=== PATIENT | female | born 1990 | race Caucasian/White ===

== ENCOUNTER 2017-11-22 03:18 | Emergency (ER) | payer OTHER ==
[~2017-11-22] VITALS: Ht 170.2 cm; Wt 63.5 kg
[2017-11-22] MEDS ORDERED: IV NORMAL SALINE 1,000ML 1,000 ML IV SCH (03:30)
[2017-11-22] MEDS ORDERED: IV NORMAL SALINE 1,000ML 1,000 ML IV ONE (03:30)
[2017-11-22 03:43] LABS: BARBITURATES NEG (NEG); BENZODIAZEPINES NEG (NEG); CANNABINOIDS NEG (NEG); COCAINE NEG (NEG); METHADONE NEG (NEG); OPIATES NEG (NEG); PHENCYCLIDINE NEG (NEG)
[2017-11-22 03:44] LABS: AMPHETAMINE/METHAMPHETAMINE NEG (NEG)
--- NOTE | 2017-11-22 03:45 | PHYS DOC ---
Adult General Chief Complaint Chief Complaint: ALCOHOL INTOXICATION HPI HPI 26-year-old female with a history of alcohol abuse now brought in by EMS for evaluation of intoxication. Per EMS someone was concerned the patient was having seizure-like activity, but EMS states they arrived during activity and the patient was not unconscious nor did she have any objective evidence of having had a generalized tonic-clonic seizure. There was no postictal state the patient had no incontinence. Patient admits to drinking and she is intoxicated. Denies trauma. Patient is vague about whether she uses any drugs. No history of overdose, SI, or self injury. Review of Systems Review of Systems Constitutional: Denies fever or chills [] Eyes: Denies change in visual acuity, redness, or eye pain [] HENT: Denies nasal congestion or sore throat [] Respiratory: Denies cough or shortness of breath [] Cardiovascular: No additional information not addressed in HPI [] GI: Denies abdominal pain, nausea, vomiting, bloody stools or diarrhea [] : Denies dysuria or hematuria [] Musculoskeletal: Denies back pain or joint pain [] Integument: Denies rash or skin lesions [] Neurologic: Denies headache, focal weakness or sensory changes [] Endocrine: Denies polyuria or polydipsia [] All other systems were reviewed and found to be within normal limits, except as documented in this note. Current Medications Current Medications Current Medications Medications (Trade) Dose Ordered Sig/Rohini Start Time Stop Time Status Last Admin Dose Admin Sodium Chloride 1,000 ml @ 1,000 mls/hr 1X ONCE 11/22/17 03:30 11/22/17 04:29 UNV Thiamine HCl 100 mg/Sodium Chloride 51 ml @ 102 mls/hr DAILY 11/22/17 09:00 UNV Physical Exam Physical Exam Constitutional: Well developed, well nourished, clinically intoxicated with alcohol on her breath but alert and communicative, cursing at staff HENT: Normocephalic, atraumatic, bilateral external ears normal, oropharynx moist, nose normal. [] Eyes: PERRLA, EOMI, conjunctiva normal, no discharge. [] Neck: Normal range of motion, supple, no stridor. [] Cardiovascular:Heart rate regular rhythm Lungs & Thorax: No tachypnea or increased work of breathing Abdomen: Abdomen nondistended Skin: Warm, dry, no erythema, no rash. [] Back: Unremarkable Extremities: Normal appearing, normal spontaneous range of motion, no cyanosis, no clubbing, ROM intact, no edema. [] Neurologic: Alert and oriented X 3, normal motor function, normal sensory function, no focal deficits noted. [] Psychologic: Tearful with anxious affect, clinically intoxicated but alert and communicative EKG EKG [] Radiology/Procedures Radiology/Procedures [] Course & Med Decision Making Course & Med Decision Making Pertinent Labs and Imaging studies reviewed. (See chart for details) Signs and symptoms consistent with alcohol intoxication. Patient admits to alcohol abuse this evening. Seizure-like activity witnessed by EMS not consistent with generalized tonic-clonic seizure. Patient with no evidence of alcohol withdrawal. Vital signs unremarkable with no tachycardia. She is nonfocal neurologically with a benign exam other than clinical intoxication. Patient is verbally abusive cursing at nursing staff. Hydration initiated and findings and will be administered. Workup pending. Shortly after patient arrival parents are present in the room at the bedside. After hydration and workup they're comfortable taking patient home and will be responsible for her safety until adequate resolution of her intoxication. Patient and parents agree with outpatient follow-up after treatment and strict return precautions will be given [] Dragon Disclaimer Dragon Disclaimer This electronic medical record was generated, in whole or in part, using a voice recognition dictation system. Departure Departure: Impression: Primary Impression: Alcohol intoxication Additional Impression: Alcohol abuse Disposition: 01 HOME, SELF-CARE Condition: IMPROVED Referrals: PERI BETH DO (PCP) Patient Instructions: Alcohol Intoxication, Alcohol Problems Additional Instructions: Nohemi is intoxicated from alcohol abuse this evening. She has been hydrated with normal saline intravenously. No further workup or treatment is indicated at this time. As her parents, you have expressed that you are willing to take responsibility for her safety while her intoxication completely resolves. Have her rest and drink plenty of nonalcoholic fluids and follow-up with her doctor tomorrow. Return immediately to the emergency department or bowel 911 for any new severe or worsening symptoms or concerns. Problem Qualifiers TRAMAINE MORRIS MD Nov 22, 2017 03:45
[2017-11-22] MEDS ORDERED: THIAMINE 200 MG/2 ML VIAL. IV ONE ×2 (03:54→04:17)
[2017-11-22] MEDS ORDERED: IV NORMAL SALINE 50ML 50 ML ONE (03:54)
[2017-11-22 04:01] LABS: BASO % 1 % (0-3); EOS # 0.2 x10^3/uL (0.0-0.7); EOS % 4 % (0-3); HEMATOCRIT 43.2 % (36.0-47.0); HEMOGLOBIN 14.8 g/dL (12.0-15.5); LYMPH # 2.5 x10^3/uL (1.0-4.8); LYMPH % 40 % (24-48); MEAN CORPUSCULAR HEMOGLOBIN 30 pg (25-35); MEAN CORPUSCULAR HGB CONC 34 g/dL (31-37); MEAN CORPUSCULAR VOLUME 89 fL (79-100); MONO # 0.5 x10^3/uL (0.0-1.1); MONO % 8 % (0-9); NEUT % 48 % (31-73); PLATELET COUNT 208 x10^3/uL (140-400); RED BLOOD COUNT 4.86 x10^6/uL (3.50-5.40); RED CELL DISTRIBUTION WIDTH 13.2 % (11.5-14.5); WHITE BLOOD COUNT 6.2 x10^3/uL (4.0-11.0)
[2017-11-22 04:08] LABS: CREATININE 0.8 mg/dL (0.6-1.0); POTASSIUM 3.3 mmol/L (3.5-5.1)
[2017-11-22 04:13] LABS: ACETAMIN < 2.0 mcg/mL (10-30); SALIC 3.5 mg/dL (2.8-20.0)
[2017-11-22] MEDS ORDERED: POTASSIUM CHLORIDE 20 MEQ TABLET.ER. PO ONE (04:45)
[2017-11-22 05:04] VITALS: BP 99/60
[2017-11-22] MEDS ORDERED: THIAMINE 100 MG in IV NORMAL SALINE 50ML 50 ML IV SCH (09:00)
== END 2017-11-22 05:11 | disposition home or self-care (01) ==
LOC: ER 03:18
DX: F10.129 Alcohol abuse with intoxication, unspecified (principal)
CPT/HCPCS: 36415; 80048; 80307; 85025; 96365; 99284; G0480; G0479; J7030

== ENCOUNTER → 2018-02-22 | Outpatient (CLI) | payer OTHER ==
--- NOTE | 2018-02-22 17:57 | RAD ---
OB ULTRASOUND, > 14 WEEKS Clinical Indication: Amenorrhea. Intermittent cramping. Comparison: None. Technique: Multiple grayscale images, color Doppler, and M-mode images of the uterus are obtained. Findings: There is a single intrauterine gestation in variable presentation. The placenta is posterior in location. The placenta is low-lying. Finding is not unusual given the gestational age. The amount of amniotic fluid appears appropriate. Cervical length is 4.8 cm. Cervix is closed. No funneling. Biometrical data: BPD = 7.6 cm for 13 weeks 5 days. HC = 2.2 cm for 13 weeks 4 days. AC = 8.5 cm for 13 weeks 5 days. FL = 6.7 cm for 13 weeks 3 days. HC/AC ratio = 1.27. Overall, the estimated sonographic gestational age is 13 weeks and 4 days for an estimated date of delivery of August 26, 2018. The estimated date of delivery provided by the last menstrual period is October 07, 2018. Estimated weight is out of range. The estimated heart rate is 157 beats per minute. A complete anatomic survey is not performed due to early gestational age. IMPRESSION: 1. Single live intrauterine gestation with estimated sonographic gestational age of 13 weeks and 4 days. 2. The placenta is low-lying. Suggest attention on follow-up ultrasound. Electronically signed by: Mumtaz Edwards MD (02/22/2018 5:53 PM) [id number]
== END | disposition home or self-care (01) ==
LOC: US 12:50
PROVIDERS: ATTEND Family Medicine
DX: Z34.81 Encounter for supervision of other normal pregnancy, first trimester (principal); Z3A.13 13 weeks gestation of pregnancy
CPT/HCPCS: 76801; 76817

== ENCOUNTER → 2018-04-13 | Outpatient (CLI) | payer OTHER ==
--- NOTE | 2018-04-13 13:24 | RAD ---
Examination: Limited Obstetric ultrasound greater than 14 weeks HISTORY: History of decreased movement, periumbilical pain COMPARISON: 02/22/2018 FINDINGS: Single living intrauterine identified with heart rate of 152 bpm. movement is identified. The amniotic fluid index measures 10 cm. The placenta is in the posterior wall and in the fundus. The biparietal diameter measures 4.5 cm corresponding to 19 weeks and 4 days. Head circumference measures 16.8 cm corresponding to 19 weeks and 3 days. Abdominal circumference measures 14.2 cm corresponding to 19 weeks and 4 days. Femur length measures 3.08 cm corresponding to 19 weeks and 4 days. Head circumference to abdominal circumference ratio 1.18. Estimated weight 300 g. Gestational age is 19 weeks and 4 days with estimated date of delivery by this ultrasound 09/03/2018 (on the prior exam the estimated date of delivery measured 08/26/2018). Given LMP is 11/19/2017. Clinical age is 20 weeks and 5 days. Cephalic index 78.2. Head circumference to abdominal circumference ratio 1.18. Femur length to biparietal diameter ratio 68.4. Femur length to head circumference 18.3. Femur length to abdominal circumference 21.6. IMPRESSION: Single living intrauterine with heart rate of 152 bpm. Findings as described above. Electronically signed by: James Ordaz MD (04/13/2018 1:21 PM) [id number]
== END | disposition home or self-care (01) ==
LOC: US 12:19
PROVIDERS: ATTEND Family Medicine
DX: O36.8120 Decreased fetal movements, second trimester, not applicable or unspecified (principal); Z3A.19 19 weeks gestation of pregnancy
CPT/HCPCS: 76805

== ENCOUNTER 2019-02-06 09:53 | Emergency (ER) | payer OTHER ==
[~2019-02-06] VITALS: Ht 160 cm; Wt 53.6 kg
[2019-02-06 10:05] VITALS: BP 129/81
--- NOTE | 2019-02-06 10:32 | PHYS DOC ---
Past History Past Medical History: Asthma Past Surgical History: Alcohol Use: Heavy Drug Use: None Adult General Chief Complaint Chief Complaint: PAIN ON URINATION HPI HPI Patient is a 28 year old female who presents with complaint of dysuria. States that her symptoms started 2 days ago in our gradually worsening. Notes that she is had increased urinary frequency. Currently on menstrual period. Denies any abnormal vaginal discharge. States that her pain is only present with urinating. Denies any abdominal pain, fever, or vomiting. Has not taken any medication for her symptoms. Review of Systems Review of Systems Constitutional: Denies fever or chills [] Eyes: Denies change in visual acuity, redness, or eye pain [] HENT: Denies nasal congestion or sore throat [] Respiratory: Denies cough or shortness of breath [] Cardiovascular: Denies chest pain or edema[] GI: Denies abdominal pain, nausea, vomiting, bloody stools or diarrhea [] : Dysuria, increased urinary frequency[] Musculoskeletal: Denies back pain or joint pain [] Integument: Denies rash or skin lesions [] Neurologic: Denies headache, focal weakness or sensory changes [] All other systems were reviewed and found to be within normal limits, except as documented in this note. Allergies Allergies Allergies Coded Allergies Type Severity Reaction Last Updated Verified Unable to Assess 11/22/17 No Physical Exam Physical Exam Constitutional: Well developed, well nourished, no acute distress, non-toxic appearance. [] HENT: Normocephalic, atraumatic, bilateral external ears normal, oropharynx moist, no oral exudates, nose normal. [] Eyes: PERRLA, EOMI, conjunctiva normal, no discharge. [] Neck: Normal range of motion, no tenderness, supple, no stridor. [] Cardiovascular:Heart rate regular rhythm, no murmur [] Lungs & Thorax: Bilateral breath sounds clear to auscultation [] Abdomen: Bowel sounds normal, soft, no tenderness, no masses, no pulsatile masses. [] Skin: Warm, dry, no erythema, no rash. [] Back: No tenderness, no CVA tenderness. [] Extremities: No tenderness, no cyanosis, no clubbing, ROM intact, no edema. [] Neurologic: Alert and oriented X 3, normal motor function, normal sensory function, no focal deficits noted. [] Current Patient Data Vital Signs Vital Signs Date Time Temp Pulse Resp B/P (MAP) Pulse Ox O2 Delivery O2 Flow Rate FiO2 02/06/19 10:05 98.2 83 20 97 Room Air Lab Results Laboratory Tests Test 02/06/19 10:50 02/06/19 11:00 Urine Collection Type Unknown Urine Color Maris Urine Clarity Cloudy Urine pH 6.0 Urine Specific [place] >=1.030 Urine Protein 30 mg/dl Urine Glucose (UA) Neg mg/dL Urine Ketones (Stick) 15 mg/dL Urine Blood Mod Urine Nitrite Neg Urine Bilirubin Neg Urine Urobilinogen Dipstick 0.2 mg/dL Urine Leukocyte Esterase Trace Urine RBC 3-5 /HPF Urine WBC >40 /HPF Urine Squamous Epithelial Cells Mod /LPF Urine Bacteria Mod /HPF Urine Mucus Marked /LPF Bedside Urine HCG, Qualitative hcg negative EKG EKG Not performed[] Radiology/Procedures Radiology/Procedures Not performed[] Course & Med Decision Making Course & Med Decision Making Pertinent Labs and Imaging studies reviewed. (See chart for details) Urinalysis highly suspicious for urinary tract infection. Patient started on Macrobid in the emergency department. We'll continue on seven-day course for outpatient treatment. Advised follow-up with primary doctor in the next 5-7 days if symptoms are not improving and return to emergency department for any worsening symptoms. Patient was understanding and in agreement with treatment plan.[] Dragon Disclaimer Dragon Disclaimer This electronic medical record was generated, in whole or in part, using a voice recognition dictation system. Departure Departure: Impression: Primary Impression: Urinary tract infection Disposition: HOME, SELF-CARE Condition: STABLE Referrals: PERI BETH DO (PCP) Patient Instructions: Urinary Tract Infection Additional Instructions: Follow-up with your primary doctor in 5 days if symptoms are not improving. Return to emergency department for any worsening symptoms. Scripts Phenazopyridine Hcl (PYRIDIUM) 100 Mg Tablet 100 MG PO TID, #5 TAB Prov: SHAUNA BAGLEY MD 02/06/19 Nitrofurantoin Monohyd/M-Cryst (MACROBID 100 MG CAPSULE) 100 Mg Capsule 1 CAP PO BID, #14 CAP Prov: SHAUNA BAGLEY MD 02/06/19 Problem Qualifiers Primary Impression: Urinary tract infection Urinary tract infection type: site unspecified Hematuria presence: with hematuria Qualified Codes: N39.0 - Urinary tract infection, site not specified; R31.9 - Hematuria, unspecified SHAUNA BAGLEY MD Feb 06, 2019 10:32
[2019-02-06 11:23] LABS: BILIRUBIN,URINE NEG (NEG); CLARITY,URINE CLOUDY; COLOR,URINE AMBER; GLUCOSE,URINE NEG (NEG); NITRITE,URINE NEG (NEG); UROBILINOGEN,URINE 0.2 mg/dL (0.2 mg/dL)
[2019-02-06 11:24] LABS: BACTERIA,URINE MOD /HPF (0-FEW); SQUAMOUS EPITHELIAL CELL,UR MOD /LPF; WBC,URINE >40 /HPF (0-4)
[2019-02-06] MEDS ORDERED: NITR100C62 PO (11:38)
[2019-02-06] MEDS ORDERED: PHEN100T82 PO (11:38)
[2019-02-06] MEDS ORDERED: PHENAZOPYRIDINE 100 MG TABLET. PO ONE (12:00)
[2019-02-06] MEDS ORDERED: NITROFURANTOIN MONOHYD/M-CRYST 100 MG CAPSULE. PO ONE (12:00)
== END 2019-02-06 11:50 | disposition home or self-care (01) ==
LOC: ER 09:53
DX: N39.0 Urinary tract infection, site not specified (principal); R31.9 Hematuria, unspecified; J45.909 Unspecified asthma, uncomplicated; F10.20 Alcohol dependence, uncomplicated; Y90.9 Presence of alcohol in blood, level not specified
CPT/HCPCS: 81001; 81025; 87086; 99284

== ENCOUNTER 2019-11-17 10:16 | Emergency (ER) | payer OTHER ==
[~2019-11-17] VITALS: Ht 167.6 cm; Wt 59.0 kg
[~2019-11-17 10:16] MED LIST: NITR100C62 PO; PHEN100T82 PO
[2019-11-17 10:42] VITALS: BP 120/76
[2019-11-17] MEDS ORDERED: CYCL-331 PO (10:58)
[2019-11-17] MEDS ORDERED: NAPR500T8 PO (10:58)
--- NOTE | 2019-11-17 10:58 | PHYS DOC ---
Past History Past Medical History: No Pertinent History Past Surgical History: Alcohol Use: Occasionally Drug Use: None General Adult EDM: Chief Complaint: BACK PAIN OR INJURY HPI: HPI: Patient is a 28-year-old female who has had couple weeks of lower back pain. She states it is more on the left than the right and radiates down into her left hip and buttock. She states it is better when she sits that she has quite a bit of pain when she tries to stand up. She denies any dysuria or gross hematuria. She has not had any fever chills or sweats. She denies any nausea or vomiting. [] Review of Systems: Review of Systems: Constitutional: Denies fever or chills Eyes: Denies change in visual acuity HENT: Denies nasal congestion or sore throat Respiratory: Denies cough or shortness of breath Cardiovascular: Denies chest pain or edema GI: Denies abdominal pain, nausea, vomiting, bloody stools or diarrhea : Denies dysuria Musculoskeletal: Reports back pain with radicular symptoms into the left leg Integument: Denies rash Neurologic: Denies headache, focal weakness or sensory changes Endocrine: Denies polyuria or polydipsia Lymphatic: Denies swollen glands Psychiatric: Denies depression or anxiety Heart Score: Risk Factors: Risk Factors: DM, Current or recent (<one month) smoker, HTN, HLP, family history of CAD, obesity. Risk Scores: Score 0 - 3: 2.5% MACE over next 6 weeks - Discharge Home Score 4 - 6: 20.3% MACE over next 6 weeks - Admit for Clinical Observation Score 7 - 10: 72.7% MACE over next 6 weeks - Early Invasive Strategies Current Medications: Current Meds: Current Medications Medications (Trade) Dose Ordered Sig/Rohini Start Time Stop Time Status Last Admin Dose Admin Ketorolac Tromethamine (Toradol Im) 60 mg 1X ONCE 11/17/19 11:00 11/17/19 11:01 UNV Orphenadrine Citrate (Norflex) 60 mg 1X ONCE 11/17/19 11:00 11/17/19 11:01 Allergies: Allergies: Allergies Coded Allergies Type Severity Reaction Last Updated Verified Penicillins Allergy Unknown 02/06/19 Yes Physical Exam: PE: Constitutional: Well developed, well nourished, moderate e distress, non-toxic appearance. [] HENT: Normocephalic, atraumatic, bilateral external ears normal, oropharynx moist, no oral exudates, nose normal. [] Eyes: PERRLA, EOMI, conjunctiva normal, no discharge. [] Neck: Normal range of motion, no tenderness, supple, no stridor. [] Cardiovascular:Heart rate regular rhythm, no murmur [] Lungs & Thorax: Bilateral breath sounds clear to auscultation [] Abdomen: Bowel sounds normal, soft, no tenderness, no masses, no pulsatile masses. [] Skin: Warm, dry, no erythema, no rash. [] Back: Pain and muscle spasm when palpated left lumbar paraspinal region. There is no tenderness to palp over the left piriformis. [] Extremities: No tenderness, no cyanosis, no clubbing, ROM intact, no edema. [] Neurologic: Alert and oriented X 3, normal motor function, normal sensory function, no focal deficits noted. [] Psychologic: Anxious [] Current Patient Data: Vital Signs: Vital Signs Date Time Temp Pulse Resp B/P (MAP) Pulse Ox O2 Delivery O2 Flow Rate FiO2 11/17/19 10:42 98.5 78 18 120/76 (91) 99 Room Air EKG: EKG: [] Radiology/Procedures: Radiology/Procedures: [] Course & Med Decision Making: Course & Med Decision Making Pertinent Labs and Imaging studies reviewed. (See chart for details) [] Dragon Disclaimer: Dragon Disclaimer: This electronic medical record was generated, in whole or in part, using a voice recognition dictation system. Departure Departure: Impression: Primary Impression: Sciatica Qualified Codes: M54.32 - Sciatica, left side Disposition: HOME, SELF-CARE Condition: STABLE Referrals: PCP,NO (PCP) Patient Instructions: Sciatica, Sciatica with [facility] Scripts Naproxen (NAPROXEN) 500 Mg Tablet. 1 TAB PO Q12HR PRN for PAIN, #60 TAB 1 Refill Prov: BLAYNE LEE DO 11/17/19 Cyclobenzaprine Hcl (CYCLOBENZAPRINE HCL) 10 Mg Tablet 1 TAB PO Q8HRS PRN for PAIN, #20 TAB Prov: BLAYNE LEE DO 11/17/19 BLAYNE LEE DO Nov 17, 2019 10:58
[2019-11-17] MEDS ORDERED: ORPHENADRINE CITRATE 60 MG/2 ML VIAL. IM ONE (11:00)
[2019-11-17] MEDS ORDERED: KETOROLAC 60 MG/2 ML VIAL. IM ONE (11:00)
[2019-11-17 11:20] LABS: BACTERIA,URINE FEW /HPF (0-FEW); BILIRUBIN,URINE NEG (NEG); CLARITY,URINE HAZY; COLOR,URINE YELLOW; GLUCOSE,URINE NEG (NEG); NITRITE,URINE NEG (NEG); SQUAMOUS EPITHELIAL CELL,UR MANY /LPF; UROBILINOGEN,URINE 0.2 mg/dL (0.2 mg/dL)
[2019-11-17 11:26] LABS: U PREG PATIENT NEGATIVE (NEG)
== END 2019-11-17 11:51 | disposition home or self-care (01) ==
LOC: ER 10:16
DX: M54.42 Lumbago with sciatica, left side (principal); Z98.890 Other specified postprocedural states; Z88.0 Allergy status to penicillin
CPT/HCPCS: 81001; 81025; 96372; 99284; J1885; J2360

== ENCOUNTER → 2021-10-27 | Outpatient (CLI) | payer OTHER ==
[~2021-10-27] MED LIST changes: +CYCL10TA19 PO; +NAPR500T8 PO
--- NOTE | 2021-10-27 16:30 | RAD ---
XR CHEST 2V INDICATION: COUGH POST COVID 2 WEEKS AGO COMPARISON STUDY: None. FINDINGS: Lungs: Normal lung volume. No pulmonary mass or consolidation. The tracheobronchial tree and hilar st ructures are normal. Pleura: No pleural effusion or pneumothorax. Heart and Mediastinum: The cardiomediastinal silhouette is normal. The great vessels of the thorax ar e normal. Bones and Soft Tissues: The bones and soft tissues are within normal limits. IMPRESSION: No acute cardiopulmonary process. Electronically signed by: Xavier Vo MD (10/27/2021 4:28 PM) [id number]
== END ==
LOC: RAD 14:23
PROVIDERS: ATTEND Physician Assistant Medical
DX: U07.1 COVID-19 (principal)
CPT/HCPCS: 71046